=== PATIENT | female | born 1960 | race Caucasian/White ===

== ENCOUNTER 2018-06-18 07:08 | Emergency (ER) | payer OTHER ==
[2018-06-18] MEDS: SOD CHLORIDE 0.9% 1,000 ML IV (07:43)
[2018-06-18] MEDS: morphine 4 MG/ML VIAL IV (07:44)
[2018-06-18] MEDS: LIDOCAINE/MYLANTA 40 ML BTL PO (07:44)
[2018-06-18] MEDS: ONDANSETRON 4 MG INJ IV (07:44)
[2018-06-18] MEDS: BELLADONNA/PHENOBARBITAL TAB PO (07:44)
[2018-06-18 08:02] LABS: ADD MAN DIFF? NO
[2018-06-18 08:05] LABS: WHITE BLOOD COUNT 6.9 10^3/ul (4.8-10.8)
[2018-06-18 08:05] LABS: BASOPHIL # 0.1 10^3/ul (0.0-0.1); BASOPHILS % 1.2 % (0.0-2.0); EOSINOPHILS # 0.1 10^3/ul (0.0-0.5); EOSINOPHILS % 0.7 % (0.0-7.0); HEMATOCRIT 40.3 % (37.0-47.0); HEMOGLOBIN 13.6 g/dl (12.0-16.0); LYMPHOCYTES # 1.6 10^3/ul (0.8-2.9); LYMPHOCYTES % 22.9 % (15.0-51.0); MEAN CORPUSCULAR HEMOGLOBIN 30.6 pg (29.0-33.0); MEAN CORPUSCULAR HGB CONC 33.7 g/dl (32.0-37.0); MEAN CORPUSCULAR VOLUME 90.6 fl (82.0-101.0); MEAN PLATELET VOLUME 10.4 fl (7.4-10.4); MONOCYTE # 0.4 10^3/ul (0.3-0.9); MONOCYTES % 6.2 % (0.0-11.0); NEUTROPHIL # 4.7 10^3/ul (1.6-7.5); NEUTROPHILS % 68.7 % (39.0-77.0); PLATELET COUNT 203 10^3/UL (140-415); RED BLOOD COUNT 4.45 10^6/ul (4.20-5.40); RED CELL DISTRIBUTION WIDTH 13.2 % (11.5-14.5)
[2018-06-18 08:10] LABS: ADD UMIC YES; UR ASCORBIC ACID NEGATIVE (NEGATIVE); UR BILIRUBIN (Dip) NEGATIVE (NEGATIVE); UR BLOOD (Dip) 2+ mg/dL (NEGATIVE); UR CLARITY SLIGHTLY CLOUDY (CLEAR); UR COLOR YELLOW (YELLOW); UR GLUCOSE (Dip) NEGATIVE (NEGATIVE); UR KETONES (Dip) NEGATIVE (NEGATIVE); UR LEUKOCYTE ESTERASE (Dip) NEGATIVE Leu/ul (NEGATIVE); UR MUCUS FEW /HPF (NONE SEEN); UR NITRITE (Dip) NEGATIVE (NEGATIVE); UR RBC 7 /HPF (0-5); UR SPECIFIC GRAVITY (Dip) 1.024 (1.003-1.030); UR SQUAMOUS EPITHELIAL CELL FEW /HPF (FEW); UR TOTAL PROTEIN (Dip) NEGATIVE (NEGATIVE); UR UROBILINOGEN (Dip) NEGATIVE (NEGATIVE); UR WBC 0 /HPF (0-5)
[2018-06-18 08:24] LABS: PROTIME 12.2 Sec (11.9-14.9)
[2018-06-18 08:25] LABS: PARTIAL THROMBOPLASTIN TIME 26.4 Sec (23.0-35.0)
[2018-06-18 08:35] LABS: ALANINE AMINOTRANSFERASE 47 IU/L (13-69); ALBUMIN 4.6 g/dl (3.3-4.9); ALBUMIN/GLOBULIN RATIO 1.39; ALKALINE PHOSPHATASE 86 IU/L (42-121); AMYLASE 61 U/L (11-123); ANION GAP 10 (5-13); ASPARTATE AMINO TRANSFERASE 38 IU/L (15-46); BILIRUBIN,INDIRECT 0.6 mg/dl (0-1.1); BILIRUBIN,TOTAL 0.6 mg/dl (0.2-1.3); BLOOD UREA NITROGEN 18 mg/dl (7-20); CALCIUM 9.3 mg/dl (8.4-10.2); CARBON DIOXIDE 27 mmol/L (21-31); CHLORIDE 104 mmol/L (97-110); CREATININE 0.64 mg/dl (0.44-1.00); Estimated GFR > 60 mL/min (>60); GLUCOSE 120 mg/dl (70-220); LIPASE 193 U/L (23-300); POTASSIUM 3.8 mmol/L (3.5-5.1); SODIUM 141 mmol/L (135-144); TOTAL PROTEIN 7.9 g/dl (6.1-8.1)
[2018-06-18 08:47] LABS: TROPONIN-I < 0.012 ng/ml (0.000-0.120)
[2018-06-18] MEDS: SOD CHLORIDE 0.9% 100 ML (09:16)
[2018-06-18] MEDS: IOHEXOL 300MG/ML 150 ML BTL (09:17)
== END 2018-06-18 12:02 | disposition home or self-care (01) ==
LOC: E/R 07:08
DX: R10.13 Epigastric pain (principal); R40.2142 Coma scale, eyes open, spontaneous, at arrival to emergency department; R40.2362 Coma scale, best motor response, obeys commands, at arrival to emergency department; R40.2252 Coma scale, best verbal response, oriented, at arrival to emergency department; I10 Essential (primary) hypertension; Z79.82 Long term (current) use of aspirin
CPT/HCPCS: 36415; 71045; 74177; 80053; 81001; 82150; 83690; 84484; 85025; 85610; 85730; 93005; 96361; 96374; 96375; 99285-25

== ENCOUNTER 2018-11-12 20:35 | Emergency (ER) | payer OTHER ==
[2018-11-13 01:56] LABS: ADD MAN DIFF? NO
[2018-11-13 01:57] LABS: BASOPHILS % 0.6 % (0.0-2.0); EOSINOPHILS % 0.9 % (0.0-7.0); HEMATOCRIT 42.9 % (37.0-47.0); HEMOGLOBIN 14.5 g/dl (12.0-16.0); LYMPHOCYTES # 0.7 10^3/ul (0.8-2.9); LYMPHOCYTES % 15.8 % (15.0-51.0); MEAN CORPUSCULAR HEMOGLOBIN 31.2 pg (29.0-33.0); MEAN CORPUSCULAR HGB CONC 33.8 g/dl (32.0-37.0); MEAN CORPUSCULAR VOLUME 92.3 fl (82.0-101.0); MEAN PLATELET VOLUME 9.7 fl (7.4-10.4); MONOCYTE # 0.3 10^3/ul (0.3-0.9); MONOCYTES % 7.3 % (0.0-11.0); NEUTROPHIL # 3.5 10^3/ul (1.6-7.5); NEUTROPHILS % 75.2 % (39.0-77.0); PLATELET COUNT 183 10^3/UL (140-415); RED BLOOD COUNT 4.65 10^6/ul (4.20-5.40); RED CELL DISTRIBUTION WIDTH 12.8 % (11.5-14.5)
[2018-11-13 01:57] LABS: WHITE BLOOD COUNT 4.7 10^3/ul (4.8-10.8)
[2018-11-13 02:27] LABS: ALANINE AMINOTRANSFERASE 68 IU/L (13-69); ALBUMIN 4.8 g/dl (3.3-4.9); ALKALINE PHOSPHATASE 88 IU/L (42-121); ANION GAP 10 (5-13); ASPARTATE AMINO TRANSFERASE 72 IU/L (15-46); BLOOD UREA NITROGEN 11 mg/dl (7-20); CALCIUM 10.1 mg/dl (8.4-10.2); CARBON DIOXIDE 24 mmol/L (21-31); CHLORIDE 104 mmol/L (97-110); CREATININE 0.84 mg/dl (0.44-1.00); Estimated GFR > 60 mL/min (>60); GLUCOSE 109 mg/dl (70-220); POTASSIUM 3.7 mmol/L (3.5-5.1); SODIUM 138 mmol/L (135-144); TOTAL PROTEIN 8.8 g/dl (6.1-8.1)
[2018-11-13 02:40] LABS: BILIRUBIN,INDIRECT 0.5 mg/dl (0-1.1); BILIRUBIN,TOTAL 0.5 mg/dl (0.2-1.3)
== END 2018-11-13 06:10 | disposition home or self-care (01) ==
LOC: FTE 20:35
DX: M54.2 Cervicalgia (principal); I10 Essential (primary) hypertension; Z79.82 Long term (current) use of aspirin
CPT/HCPCS: 72040; 80053; 85025; 93005; 99285-25

== ENCOUNTER 2019-04-01 14:51 | Emergency (ER) | payer OTHER ==
[2019-04-01] MEDS: ACETAMINOPHEN 325 MG TAB PO (19:18)
== END 2019-04-01 19:40 | disposition home or self-care (01) ==
LOC: E/R 14:51
DX: R07.9 Chest pain, unspecified (principal)
CPT/HCPCS: 71045; 93005; 99284-25